=== PATIENT | female | born 1955 | race Caucasian/White ===

== ENCOUNTER 2020-07-08 13:37 | Inpatient (IN) | payer BC ==
[2020-07-08] VITALS (7 sets, daily range): BP systolic 137–172; BP diastolic 83–103
[~2020-07-08] VITALS: Ht 170.2 cm; Wt 56.7 kg
[2020-07-08 14:31] LABS: ABSOLUTE NEUTROPHILS 6.3 thou/uL (1.4-8.2); BASOPHILS 0.5 % (0.0-2.0); EOSINOPHILS 0.6 % (0.0-3.0); HEMATOCRIT 31.4 % (37.0-47.0); HEMOGLOBIN 10.2 gm/dL (12.0-15.0); LYMPHOCYTES 14.9 % (24.0-44.0); MCH 25.9 pg (26.0-34.0); MCHC 32.4 g/dL (28.0-37.0); MCV 79.9 fL (80.0-100.0); MONOCYTES 8.2 % (1.0-8.0); PLATELET COUNT 601 thou/uL (150-400); POLYS 75.8 % (36.0-66.0); RBC 3.93 mil/uL (4.20-5.00); RDW 14.9 % (10.5-14.5); WBC 8.4 thou/uL (4.0-11.0)
[2020-07-08 14:41] LABS: ANION GAP 8 mmol/L (7-16); BUN 11 mg/dL (7-18); CALCIUM 9.3 mg/dL (8.5-10.1); CHLORIDE 102 mmol/L (98-107); CO2 28 mmol/L (21-32); GLUCOSE 105 mg/dL (74-106); POTASSIUM 3.6 mmol/L (3.5-5.1); SODIUM 138 mmol/L (136-145)
[2020-07-08 14:52] LABS: ALBUMIN 2.8 g/dL (3.4-5.0); AMYLASE 54 U/L (25-115); DIRECT BILIRUBIN < 0.1 mg/dL (<0.1-0.2); LIPASE 86 U/L (73-393); SGOT 9 U/L (15-37); SGPT 10 U/L (30-65); TOTAL BILIRUBIN 0.3 mg/dL (0.2-1.0); TOTAL PROTEIN 7.5 g/dL (6.4-8.2); TROPONIN-I <0.06 ng/mL (<0.06)
--- NOTE | 2020-07-08 14:53 | NUR ---
PT. DAUGHTER IS MISBAH, SHE CAN BE REACHED AT [phone]
[2020-07-08 15:11] LABS: URINE BILIRUBIN NEGATIVE (Negative); URINE BLOOD TRACE (Negative); URINE CLARITY CLEAR; URINE COLOR YELLOW; URINE GLUCOSE-RANDOM* NEGATIVE (Negative); URINE KETONES NEGATIVE (Negative); URINE LEUKOCYTES-REFLEX TRACE (Negative); URINE NITRITE-REFLEX NEGATIVE (Negative); URINE PROTEIN (DIPSTICK) NEGATIVE (Negative)
--- NOTE | 2020-07-08 15:56 | NUR ---
ATTEMPTED TO CALL REPORT. WAITED ON HOLD FOR SEVERAL MINUTES. ADVISED AKANKSHA LUJAN TO TAKE PT. TO FLOOR, NURSE CAN CALL FOR REPORT AT HIS/HER CONVENIENCE
[2020-07-08 16:24] LABS: % SATURATION 12 % (20-39); IRON 21 ug/dL (50-170); TIBC 177 ug/dL (250-450)
--- NOTE | 2020-07-08 19:49 | NUR ---
Assumed pt care from ED. Pt is alert & oriented x4 and cooperative . Up & ad lisa. No c/o of pain, nausea and vomiting this pm. Pt has IV L AC. Denies smoke and drinking. Endorse to night nurse. Pt is on the bed. Bed on the lowest position, side rails up x 2, call light within reach. Will continue to monitor. Follow POC.
--- NOTE | 2020-07-08 20:30 | NUR ---
Lab had called with covid positive lab results. Dr. Mascorro called and notified and she wants patient transfered to [facility]. custodial supervisor informed and awaiting room number. Pt. was informed of lab results and the need to transfer to [facility].
--- NOTE | 2020-07-08 23:15 | NUR ---
Pt. transfered to room 356 on . Pt. pleasant and offers no c/o pain or nausea. Report given to Kate HIGGINS.
--- NOTE | 2020-07-09 00:07 | NUR ---
pt transferred to room 356. covid positive. pt is aware of NPO status tonight for nuclear medicaine study in the am. denies abdominal pain at time of transfer. she stated that she really has not eaten at all today and her pain is much improved. oriented to room and surroundings. calm and cooperative.
[2020-07-09 03:48] VITALS: BP 151/104
[2020-07-09 04:31] LABS: ABSOLUTE NEUTROPHILS 6.2 thou/uL (1.4-8.2); BASOPHILS 0.5 % (0.0-2.0); HEMATOCRIT 29.4 % (37.0-47.0); HEMOGLOBIN 9.5 gm/dL (12.0-15.0); LYMPHOCYTES 13.5 % (24.0-44.0); MCH 25.8 pg (26.0-34.0); MCHC 32.4 g/dL (28.0-37.0); MCV 79.6 fL (80.0-100.0); MONOCYTES 6.7 % (1.0-8.0); PLATELET COUNT 535 thou/uL (150-400); POLYS 78.3 % (36.0-66.0); RDW 14.7 % (10.5-14.5); WBC 7.9 thou/uL (4.0-11.0)
[2020-07-09 04:45] LABS: CALCIUM 8.7 mg/dL (8.5-10.1); CREATININE 0.9 mg/dL (0.6-1.0); MAGNESIUM 1.7 mg/dL (1.8-2.4); POTASSIUM 3.6 mmol/L (3.5-5.1)
--- NOTE | 2020-07-09 04:59 | NUR ---
pain under control this shift. she has been resting and comfortable this shift.
[2020-07-09 08:30] VITALS: BP 150/109
[2020-07-09 16:45] VITALS: BP 165/112
--- NOTE | 2020-07-09 19:17 | NUR ---
PATIENT HAS RESTED IN ROOM THROUGH THE DAY. SHE STATES SHE WILL LIKE TO GO HOME BUT WILL PREFER SHE STAYED THROUGH THE NIGHT TO GET A REPEATE OF RENAL TESTS IN AM. SHE IS PLEASANT. REFUSED TO HAVE SECOND COVID TEST DONE SHE THINKS WILL NOT CHANGE HER OUTCOME. AND FMILY HAS BEEN EXPOSED TO COVID ALREADY.
[2020-07-09 19:43] VITALS: BP 166/115
[2020-07-09 20:53] VITALS: BP 162/103
--- NOTE | 2020-07-09 21:09 | NUR ---
PT AWAKE RESTING IN BED WATCHING TV. IVF INTACT. PT INDEP STEADY GAIT. BP REMAINS ELEVATED R/T RENAL OBSTRUCTION. PT STATED SHE WANTS TO LEAVE IN THE AM AND RETURN FOR KIDNEY SCAN OUTPT. PT DECLINED REPEAT COVID SWAB ON DAY SHIFT. PT DECLINING MEDICATIONS OTHER THAN IVF. PT DECLINED HS SNACK.
[2020-07-10 03:00] VITALS: BP 152/102
[2020-07-10 04:04] LABS: HEMATOCRIT 30.2 % (37.0-47.0); HEMOGLOBIN 9.8 gm/dL (12.0-15.0); MCHC 32.5 g/dL (28.0-37.0); RBC 3.77 mil/uL (4.20-5.00); RDW 15.2 % (10.5-14.5); WBC 7.1 thou/uL (4.0-11.0)
[2020-07-10 04:11] LABS: CALCIUM 8.8 mg/dL (8.5-10.1); CREATININE 0.8 mg/dL (0.6-1.0); POTASSIUM 3.4 mmol/L (3.5-5.1)
[2020-07-10 07:41] VITALS: BP 149/92
[2020-07-10] MEDS ORDERED: TYLENOL325 M1 PO (10:36)
[2020-07-10] MEDS ORDERED: ZESTRIL5 MG PO (10:36)
[2020-07-10 11:13] VITALS: BP 149/92
--- NOTE | 2020-07-10 11:47 | NUR ---
APPOINTMENT FOR OUTPATIENT RENAL SCAN SET UP FOR PT, PT INSTRUCTED ON TP CALL NUCLEAR MED EARLY IN THE AM TO SET UP TIME FOR SCAN. NUMBER TO SET APPT WITH UROLOGY IS GIVEN TO PT. NEW MED INFO AND D/C INSTRUCTION GIVEN TO PT. IV D/C. PT DENIES ANY QUESTIONS. PT TAKEN DOWN VIA WHEELCHAIR.
--- NOTE | 2020-07-11 07:35 | EKG ---
[address] [address] ELECTROCARDIOGRAM REPORT Name: MILADIS ROBISON Room #: 356-P [facility] M.R.#: [id number] Admission: 07/08/20 Attend Phys: Agustin Gordon MD Discharge: 07/10/20 Date of : 57 Report #: [id number] [facility] ED Test Date: 2020-07-08 Test Time: 14:54:47 Pat Name: MILADIS ROBISON Department: Room: 356 Gender: F Assessment Expert: DOROTA : [id number] Requested By: Mohit Olivo Order Number: [id number] MD: David Fields Measurements Intervals [place] Rate: 74 P: 72 UT: 139 QRS: 45 QRSD: 94 T: 45 QT: 435 QTc: 483 Interpretive Statements Sinus rhythm Atrial premature complex Probable left atrial enlargement No previous ECG available for comparison Electronically Signed On 07-11-2020 7:35:30 COMPUTER SYSTEMS DESIGN ANALYST by David Fields [email or web address] <ELECTRONICALLY SIGNED> By: David Fields MD, [facility] 07/11/20 0735 [id number] David Fields MD, FACC /EPI
== END 2020-07-10 11:53 | disposition home or self-care (01) | DRG 694 ==
LOC: ER 13:37 → EROBS 15:39 → 4W 15:39 → 3W 23:25
PROVIDERS: Emergency Medicine; Nurse Practitioner; ADMIT Internal Medicine; ATTEND Internal Medicine
DX: N13.0 Hydronephrosis with ureteropelvic junction obstruction (principal); E44.0 Moderate protein-calorie malnutrition; Z68.1 Body mass index [BMI] 19.9 or less, adult; N20.0 Calculus of kidney; N30.80 Other cystitis without hematuria; D64.9 Anemia, unspecified; I10 Essential (primary) hypertension; Z20.822 Contact with and (suspected) exposure to COVID-19; Z86.16 Personal history of COVID-19; Z28.21 Immunization not carried out because of patient refusal
CPT/HCPCS: 10779

== ENCOUNTER → 2020-08-10 | Outpatient (CLI) | payer BC ==
[~2020-08-10] MED LIST: TYLENOL325 M1 PO; ZESTRIL5 MG PO
== END ==
LOC: NUC 07-15 08:37
PROVIDERS: ATTEND Internal Medicine
DX: N28.89 Other specified disorders of kidney and ureter (principal); N13.0 Hydronephrosis with ureteropelvic junction obstruction